=== PATIENT | female | born 1955 | race Caucasian/White ===

== ENCOUNTER 2018-12-02 12:43 | Emergency (ER) | payer OTHER ==
[~2018-12-02] VITALS: Ht 162.6 cm; Wt 53.0 kg
[2018-12-02] MEDS ORDERED: ONDANSETRON HCL 4MG/2ML INJ IV STA (14:18)
[2018-12-02] MEDS ORDERED: SODIUM CHLORIDE 0.9% 1,000 ML IV ONE (14:18)
[2018-12-02] MEDS ORDERED: MORPHINE SULFATE 4 MG/ML CPJ (NOT FOR IM USE) IV STA (14:18)
[2018-12-02] MEDS ORDERED: KETOROLAC 30MG/ML VIAL IV STA (14:18)
[2018-12-02 14:35] LABS: BASOPHILS % 0.5 % (0.0-2.0); EOSINOPHILS % 1.7 % (0.0-5.0); HEMATOCRIT. 42.9 % (36.0-48.0); HEMOGLOBIN. 14.7 g/dL (12.0-16.0); LYMPHOCYTES % 22.6 % (20.0-50.0); MEAN CORPUSCULAR HEMOGLOBIN 33.8 pg (28.0-32.0); MEAN CORPUSCULAR VOLUME 98.8 fL (81.0-99.0); MONOCYTES % 7.4 % (2.0-8.0); NEUTROPHILS % 67.8 % (40.0-76.0); PLATELET 304 x1000/uL (130-400); RED BLOOD CELL COUNT 4.34 mill/uL (4.2-5.4); RED CELL DISTRIBUTION WIDTH 13.8 % (11.6-14.6)
[2018-12-02 14:41] LABS: CHLORIDE 108 mEq/L (98-107)
[2018-12-02] MEDS ORDERED: IOHEXOL-300 100 ML BOTTLE ONE ×2 (15:17→18:26)
[2018-12-02 17:51] VITALS: BP 117/69
[2018-12-02] MEDS ORDERED: IOHEXOL-300 50 ML BOTTLE IV ONE (18:25)
== END 2018-12-02 17:56 | disposition home or self-care (01) ==
LOC: ER 12:55
DX: R07.81 Pleurodynia (principal); M54.5 Low back pain; R79.89 Other specified abnormal findings of blood chemistry; K83.8 Other specified diseases of biliary tract; W10.9XXA Fall (on) (from) unspecified stairs and steps, initial encounter; Y93.89 Activity, other specified; Y92.520 Airport as the place of occurrence of the external cause; Y99.8 Other external cause status
CPT/HCPCS: 36415; 71045; 71260; 72100; 73521; 80053; 84484; 85025; 93005; 96374; 96375; 99284; J1885; J2270; J2405; J7030; Q9967